=== PATIENT | female | born 1950 | race Caucasian/White ===

== ENCOUNTER → 2016-09-05 | Outpatient (REF) | payer MEDICARE, OTHER | LOC: M LAB REF 13:15 | PROVIDERS: ATTEND Internal Medicine | DX: M15.9 Polyosteoarthritis, unspecified (principal); Z11.59 Encounter for screening for other viral diseases ==

== ENCOUNTER → 2016-12-06 | Outpatient (CLI) | payer MEDICARE, OTHER ==
--- NOTE | 2016-12-06 12:13 | REPMRS ---
Patient History The patient states she had a clinical breast exam in Patient is postmenopausal and has history of other cancer at age 62. Family history of endometrial cancer in sister, breast cancer in sister at age 50 or over, breast cancer in paternal aunt at age 50 or over, breast cancer in maternal cousin at age 50 or over, and breast cancer in paternal cousin at age 50 or over. Benign excisional biopsy of the right breast, 2002. Digital Woman Screen Mammo: December 06, 2016 - Exam #: [id number] Bilateral CC and MLO view(s) were taken. Technologist: Blanca Mayers, Technologist Prior study comparison: December 06, 2015, digital woman screen mammo performed at [facility]. November 23, 2014, digital woman screen mammo performed at [facility]. FINDINGS: The breast tissue is extremely dense which could obscure a lesion on mammography. There is no evidence of cancer on this mammogram. No significant changes when compared with prior studies. ASSESSMENT: BI-RADS/ACR category 2 mammogram. Benign finding(s). Given the dense breast parenchyma and family history, MRI of the breasts should be considered. Recommendation Routine screening mammogram of both breasts in 1 year (for women over age 40). This mammogram was interpreted with the aid of an FDA-approved computer-aided dectection system. Electronically Signed By: Shree Singh MD 12/06/16 [id number]
--- NOTE | 2016-12-09 10:11 | DEXA ---
AP SPINE L1 - L4 1.238 0.4 2.0 LT FEMUR TOTAL 0.894 -0.9 0.5 RT FEMUR TOTAL 0.883 -1.0 0.4 TOTAL BODY TOTAL OTHER DUAL FEMUR FRAX* ASSESSMENT Risk factors: Not performed. 10 year probability of fracture Major osteoporotic fracture % Hip fracture % COMMENTS: Normal bone densitometry of the spine. There is low bone density of the hips. The increased density of the spine does represent a significant change. The decreased density of the left hip does not represent a significant change. The increased density of the right hip does not represent a significant change. The density of the spine has decreased 1.9% since the initial exam on 01/2000. The spine density has increased 3.3% since the most recent exam on 10/2011. The density of the left hip has decreased 7.1% since the initial exam on 1999. The density of the left hip has decreased 0.8% since the most recent exam on 2011. The density of the right hip has decreased 7.7% since the initial exam on 1999. The density of the right hip has increased 0.9% since the most recent exam on 2011. FOLLOW-UP: Recommendation for the next bone density exam: 2 years. GENA
== END ==
LOC: M WHC 09:30
PROVIDERS: ATTEND Internal Medicine
DX: Z12.31 Encounter for screening mammogram for malignant neoplasm of breast (principal); M81.8 Other osteoporosis without current pathological fracture
CPT/HCPCS: 77080; G0202

== ENCOUNTER 2017-09-06 16:00 | Emergency (ER) | payer MEDICARE, OTHER ==
[2017-09-06] MEDS: ACETAMINOPHEN 325 MG TAB PO (17:11)
[2017-09-06] MEDS: NORCO 5/325MG TABLET (BULK FOR ED) PO (17:40)
== END 2017-09-06 17:49 | disposition home or self-care (01) ==
LOC: M ED 16:00
DX: S82.832A Other fracture of upper and lower end of left fibula, initial encounter for closed fracture (principal); X50.1XXA Overexertion from prolonged static or awkward postures, initial encounter; Y92.830 Public park as the place of occurrence of the external cause; Y93.89 Activity, other specified; Y99.9 Unspecified external cause status; Z79.82 Long term (current) use of aspirin; Z79.899 Other long term (current) drug therapy
CPT/HCPCS: 73590

== ENCOUNTER → 2017-12-08 | Outpatient (CLI) | payer MEDICARE, OTHER | LOC: M WHC 09:57 | DX: Z12.31 Encounter for screening mammogram for malignant neoplasm of breast (principal); Z78.0 Asymptomatic menopausal state; Z85.9 Personal history of malignant neoplasm, unspecified; Z80.3 Family history of malignant neoplasm of breast; Z80.8 Family history of malignant neoplasm of other organs or systems | CPT/HCPCS: 77067 ==

== ENCOUNTER 2017-12-17 08:40 | Day surgery (SDC) | payer MEDICARE, OTHER ==
[2017-12-17] MEDS: NS 1,000 ML IV (09:25)
[2017-12-17] MEDS ORDERED: PROPOFOL 200 MG/20 ML VIAL As Ordered (10:25)
[2017-12-17] MEDS ORDERED: LIDOCAINE 2% INJ 100 MG/5 ML SDV (FOR ANES.) As Ordered (10:25)
== END 2017-12-17 11:04 | disposition home or self-care (01) ==
LOC: M OPP 08:40
DX: Z12.11 Encounter for screening for malignant neoplasm of colon (principal); K64.0 First degree hemorrhoids; K57.30 Diverticulosis of large intestine without perforation or abscess without bleeding; E78.5 Hyperlipidemia, unspecified; K21.9 Gastro-esophageal reflux disease without esophagitis; R12 Heartburn; Z78.0 Asymptomatic menopausal state; Z87.891 Personal history of nicotine dependence; Z79.899 Other long term (current) drug therapy; Z80.3 Family history of malignant neoplasm of breast; Z80.8 Family history of malignant neoplasm of other organs or systems
CPT/HCPCS: G0121

== ENCOUNTER → 2018-12-10 | Outpatient (CLI) | payer MEDICARE, OTHER ==
[~2018-12-10] MED LIST: ASPI81TA26 PO; CALC600T60 PO; SIMV20TA2 PO
--- NOTE | 2018-12-10 16:32 | REPMRS ---
Patient History The patient states she had a clinical breast exam in 08/2018. Family history of breast cancer at age 50 or over in paternal aunt, endometrial cancer and breast cancer at age 50 or over in sister, breast cancer at age 56 in paternal cousin. Benign excisional biopsy of the right breast, 2002. Digital Woman Screen Mammo: December 10, 2018 - Exam #: [id number] Bilateral CC and MLO view(s) were taken. Technologist: Luz Ferreira, Technologist Prior study comparison: December 08, 2017, bilateral digital woman screen mammo performed at [facility]. December 06, 2016, digital woman screen mammo performed at [facility]. December 06, 2015, digital woman screen mammo performed at [facility]. FINDINGS: The breast tissue is heterogeneously dense. This may lower the sensitivity of mammography. There is a moderate amount of heterogeneously dense fibroglandular tissue which is fairly symmetric. There is no interval development of dominant mass, architectural distortion, or grouped microcalcification typical of malignancy. There has been no change in the appearance of the mammogram from the prior studies. 3-D tomosynthesis shows no additional findings. Assessment: BI-RADS/ACR category 1 mammogram. Negative Mammogram. Recommendation Routine screening mammogram of both breasts in 1 year (for women over age 40). This patient's Lifetime Breast Cancer RIsk is estimated at 9.7 %. This mammogram was interpreted with the aid of an FDA-approved computer-aided dectection system. Electronically Signed By: Duarte Willoughby MD 12/10/18 [id number]
== END ==
LOC: M WHC 13:33
PROVIDERS: ATTEND Internal Medicine
DX: Z12.31 Encounter for screening mammogram for malignant neoplasm of breast (principal); Z80.49 Family history of malignant neoplasm of other genital organs; Z80.3 Family history of malignant neoplasm of breast

== ENCOUNTER → 2019-12-22 | Outpatient (CLI) | payer MEDICARE, OTHER ==
[~2019-12-22] MED LIST changes: -SIMV20TA2 PO; +SIMV20TA22 PO
--- NOTE | 2019-12-23 07:19 | REPMRS ---
Patient History The patient states she has not had a clinical breast exam in over a year. Family history of breast cancer at age 50 or over in paternal aunt, endometrial cancer and breast cancer at age 50 or over in sister, breast cancer at age 56 in paternal cousin. Benign excisional biopsy of the right breast, 2002. Digital Woman Screen Mammo: December 22, 2019 - Exam #: [id number] Bilateral CC and MLO view(s) were taken. Technologist: Shruti Leavitt, Technologist Prior study comparison: December 10, 2018, bilateral digital woman screen mammo performed at [facility]. December 08, 2017, bilateral digital woman screen mammo performed at [facility]. December 06, 2016, digital woman screen mammo performed at [facility]. FINDINGS: The breast tissue is heterogeneously dense. This may lower the sensitivity of mammography. The Volpara volumetric breast density category is: C. There is a moderate amount of heterogeneously dense fibroglandular tissue which is fairly symmetric. There is no interval development of dominant mass, architectural distortion, or grouped microcalcification typical of malignancy. There has been no change in the appearance of the mammogram from the prior studies. 3-D tomosynthesis shows no additional findings. Assessment: BI-RADS/ACR category 1 mammogram. Negative Mammogram. Recommendation Routine screening mammogram of both breasts in 1 year (for women over age 40). This patient's Lifetime Breast Cancer RIsk is estimated at 9.1 %. This mammogram was interpreted with the aid of an FDA-approved computer-aided dectection system. Electronically Signed By: Duarte Willoughby MD 12/23/19 0718
== END ==
LOC: M WHC 08:30
PROVIDERS: ATTEND Internal Medicine
DX: Z12.31 Encounter for screening mammogram for malignant neoplasm of breast (principal); Z80.49 Family history of malignant neoplasm of other genital organs; Z80.3 Family history of malignant neoplasm of breast; Z86.018 Personal history of other benign neoplasm

== ENCOUNTER → 2020-12-26 | Outpatient (CLI) | payer MEDICARE, OTHER ==
--- NOTE | 2020-12-26 14:43 | REPMRS ---
Patient History The patient states she had a clinical breast exam in September 2020. Family history of breast cancer at age 50 or over in paternal aunt, endometrial cancer and breast cancer at age 50 or over in sister, breast cancer at age 56 in paternal cousin. Benign excisional biopsy of the right breast, 2002. pfizer vaccine 06/21/20 left arm. 07/13/20 left arm. Patient states no breast complaints today. Patient has signed MRS History Sheet. Digital Woman Screen Mammo: December 26, 2020 - Exam #: [id number] Bilateral CC and MLO view(s) were taken. Technologist: Galina Carlson, RT Prior study comparison: December 22, 2019, bilateral digital woman screen mammo performed at [facility]. December 10, 2018, bilateral digital woman screen mammo performed at [facility]. December 08, 2017, bilateral digital woman screen mammo performed at [facility]. FINDINGS: The breast tissue is heterogeneously dense. This may lower the sensitivity of mammography. The Volpara volumetric breast density category is: C. There is a moderate amount of heterogeneously dense fibroglandular tissue which is fairly symmetric. There is no interval development of dominant mass, architectural distortion, or grouped microcalcification typical of malignancy. There has been no change in the appearance of the mammogram from the prior studies. 3-D tomosynthesis shows no additional findings. Assessment: BI-RADS/ACR category 1 mammogram. Negative Mammogram. Recommendation Routine screening mammogram of both breasts in 1 year (for women over age 40). This patient's [facility] Lifetime Breast Cancer RIsk is estimated at 8.6 %. This mammogram was interpreted with the aid of an FDA-approved computer-aided dectection system. Electronically Signed By: Duarte Willoughby MD 12/26/20 4801
--- NOTE | 2020-12-26 14:46 | DEXAMM ---
INDICATION: OTHER DISORDER OF BONE DENSITY AND STRUCTURE. COMPARISON: 12/06/2016 as well as other prior exams. TECHNIQUE: Bone density was measured using dual-energy x-ray absorptiometry (DEXA). FINDINGS: AP SPINE L1-L4 BMD 1.187 g/cm2 Young Adult T-Score -0.1 Age Matched Z-Score 1.6. LT FEMUR, TOTAL BMD 0.841 g/cm2 Young Adult T-Score -1.3 Age Matched Z-Score 0.3. LT NECK BMD 0.782 g/cm2 Young Adult T-Score -1.8 Age Matched Z-Score 0.0. RT FEMUR, TOTAL BMD 0.864 g/cm2 Young Adult T-Score -1.1 Age Matched Z-Score 0.4. RT NECK BMD 0.865 g/cm2 Young Adult T-Score -1.2 Age Matched Z-Score 0.5. IMPRESSION: There is normal bone density of the spine. There is low bone density of the left hip. There is low bone density of the right hip. The density of the spine has decreased 5.9% since the initial exam on 02/19/2000. The density of the spine decreased 4.1% since most recent exam on 12/06/2016. The density of the left hip has decreased 12.6% since initial exam on 02/19/2000. The density of the left hip has decreased 5.9% since most recent exam on 12/06/2016. The density of the right hip has decreased 9.7% since the initial exam on 02/19/2000. The density of the right hip has decreased 2.2% since the most recent exam on 12/06/2016. FOLLOW-UP: Recommendation for the next bone density exam: 2 years. <Electronically signed by Shree Singh > 12/26/20 [id number]
== END ==
LOC: M WHC 13:32
PROVIDERS: ATTEND Internal Medicine
DX: Z12.31 Encounter for screening mammogram for malignant neoplasm of breast (principal); M85.88 Other specified disorders of bone density and structure, other site; Z80.49 Family history of malignant neoplasm of other genital organs; Z86.018 Personal history of other benign neoplasm

== ENCOUNTER → 2022-01-01 | Outpatient (CLI) | payer MEDICARE, OTHER | LOC: M WHC 09:23 | PROVIDERS: ATTEND Internal Medicine | DX: Z12.31 Encounter for screening mammogram for malignant neoplasm of breast (principal) ==

== ENCOUNTER → 2022-10-17 | Outpatient (CLI) | payer MEDICARE, OTHER ==
[~2022-10-17] MED LIST changes: +E-Z-GAS II EFFERVESCENT PACKET (SODIUM BICARB./CITRIC ACID/SIMETHICONE) As Ordered ONE; +E-Z-HD 98% w/w 340GM SUSP BTL As Ordered ONE; +E-Z-PAQUE 96% w/w SUSP 176GM BTL As Ordered ONE
== END ==
LOC: M RAD 09:54
PROVIDERS: ATTEND Internal Medicine
DX: K21.9 Gastro-esophageal reflux disease without esophagitis (principal)

== ENCOUNTER → 2023-01-03 | Outpatient (CLI) | payer MEDICARE, OTHER ==
[~2023-01-03] MED LIST changes: -E-Z-GAS II EFFERVESCENT PACKET (SODIUM BICARB./CITRIC ACID/SIMETHICONE) As Ordered ONE; -E-Z-HD 98% w/w 340GM SUSP BTL As Ordered ONE; -E-Z-PAQUE 96% w/w SUSP 176GM BTL As Ordered ONE
== END ==
LOC: M WHC 07:51
PROVIDERS: ATTEND Internal Medicine
DX: Z12.31 Encounter for screening mammogram for malignant neoplasm of breast (principal); M81.8 Other osteoporosis without current pathological fracture; M85.851 Other specified disorders of bone density and structure, right thigh; M85.852 Other specified disorders of bone density and structure, left thigh

== ENCOUNTER → 2023-10-16 | Outpatient (CLI) | payer MEDICARE, OTHER | LOC: M PLARAD 15:32 | PROVIDERS: ATTEND Orthopaedic Surgery | DX: M75.42 Impingement syndrome of left shoulder (principal); M75.02 Adhesive capsulitis of left shoulder ==

== ENCOUNTER → 2024-02-12 | Outpatient (CLI) | payer MEDICARE, OTHER | LOC: M WHC 09:18 | PROVIDERS: ATTEND Internal Medicine | DX: Z12.31 Encounter for screening mammogram for malignant neoplasm of breast (principal); R92.333 Mammographic heterogeneous density, bilateral breasts ==

== ENCOUNTER → 2024-08-20 | Outpatient (REF) | payer MEDICARE, OTHER | LOC: M LAB REF 12:41 | PROVIDERS: ATTEND Physician Assistant Medical | DX: R51.9 Headache, unspecified (principal) ==

== ENCOUNTER → 2025-02-14 | Outpatient (CLI) | payer MEDICARE, OTHER | LOC: M WHC 09:08 | PROVIDERS: ATTEND Internal Medicine | DX: Z12.31 Encounter for screening mammogram for malignant neoplasm of breast (principal); M81.0 Age-related osteoporosis without current pathological fracture ==